=== PATIENT | female | born 1930 | race Caucasian/White ===

== ENCOUNTER 2017-07-14 18:51 | Emergency (ER) | payer MEDICARE, MEDICAID ==
[~2017-07-14] VITALS: Ht 162.6 cm; Wt 68.0 kg
[~2017-07-14 18:51] MED LIST: ATORVASTATIN CA10 MG ORAL; BENTYL10 MG ORAL; CRESTOR40 MG ORAL; DIOVAN80 MG ORAL; NEXIUM40 MG ORAL; NORCO 5-325 TA1 EACH PO; TENORMIN25 MG ORAL; [UNRECOGNIZED DRUG - OTHER] PO
[2017-07-14 19:05] VITALS: BP 150/89
[2017-07-14] MEDS ORDERED: Hydromorphone 0.5mg/0.5ml inj IVP ONE ×2 (19:30→20:15)
[2017-07-14] MEDS ORDERED: HYOSCYAMINE0.125 MG PO (20:08)
[2017-07-14] MEDS ORDERED: DICYCLOMINE HCL20 M1 PO (20:08)
[2017-07-14] MEDS ORDERED: METOPROLOL SUCC25 MG ORAL (20:08)
[2017-07-14] MEDS ORDERED: CRESTOR20 MG ORAL (20:08)
[2017-07-14] MEDS ORDERED: BENICAR40 MG ORAL (20:08)
[2017-07-14] MEDS ORDERED: MULTIVITAMINS1 EA14 PO (20:11)
[2017-07-14] MEDS ORDERED: LYRICA50 MG ORAL (20:11)
[2017-07-14] MEDS ORDERED: TYLENOL EXTRA500 MG ORAL (20:11)
[2017-07-14] MEDS ORDERED: LORazepam Inj 2mg/ml 1ml IV ONE (20:30)
[2017-07-14] MEDS ORDERED: Hyoscyamine 0.125mg tab ORAL ONE (20:30)
[2017-07-14 21:23] VITALS: BP 132/77
[2017-07-14] MEDS ORDERED: ACETAMINOPHEN-1 EAC1 ORAL (21:34)
[2017-07-14] MEDS ORDERED: ATIVAN1 MG ORAL (21:34)
[2017-07-14 21:48] VITALS: BP 132/77
--- NOTE | 2017-07-15 15:37 | Emergency Room Report ---
History of Present Illness General Chief Complaint: Abdominal Pain Source: Patient Present Illness HPI 87-year-old female presents to ED for evaluation. Presents by EMS for abdominal pain which started around 5 PM today. Started at home. Sudden onset. Right lower quadrant, 10 out of 10, nonradiating. Notes nausea. Daughter at bedside states that patient has had this presentation for many years. States it is a spasm. Is currently on antispasmodic medications hycosamine. However it is not helping at this time. Was at [facility] last week and symptoms resolved with Bentyl. Patient states she has had multiple CT scans in the past which were unremarkable. No other aggravating or relieving factors. Denies any other associated symptoms Allergies: Coded Allergies: No Known Allergies (Unverified , 08/18/12) Patient History Past Medical History: HTN, other - hernia Past Surgical History: none Pertinent Family History: none Social History: Denies: smoking, alcohol use, drug use Now: No Immunizations: UTD Reviewed Nursing Documentation: PMH: Agreed, PSxH: Agreed Nursing Documentation-PMH Past Medical History: No History, Except For Hx Hypertension: Yes Hx Cancer: No Hx Gastrointestinal Problems: Yes - HERNIA Hx Neurological Problems: No Review of Systems All Other Systems: negative except mentioned in HPI Physical Exam Vital Signs Date Time Temp Pulse Resp B/P (MAP) Pulse Ox O2 Delivery O2 Flow Rate FiO2 07/14/17 18:51 97.8 74 18 162/60 98 Room Air 97.9 Sp02 EP Interpretation: reviewed, normal General Appearance: alert, GCS 15, non-toxic, mild distress Head: normocephalic, atraumatic Eyes: bilateral eye normal inspection, bilateral eye PERRL ENT: hearing grossly normal, normal pharynx, no angioedema, normal voice Neck: full range of motion, supple/symm/no masses Respiratory: chest non-tender, lungs clear, normal breath sounds, speaking full sentences Cardiovascular #1: regular rate, rhythm, no edema Cardiovascular #2: 2+ carotid (R), 2+ carotid (L), 2+ radial (R), 2+ radial (L) , 2+ dorsalis pedis (R), 2+ dorsalis pedis (L) Gastrointestinal: normal bowel sounds, soft, non-distended, no guarding, no rebound, tenderness Rectal: deferred Genitourinary: normal inspection, no CVA tenderness Musculoskeletal: back normal, gait/station normal, normal range of motion, non- tender Neurologic: alert, oriented x3, responsive, motor strength/tone normal, sensory intact, speech normal Psychiatric: judgement/insight normal, memory normal, mood/affect normal, no suicidal/homicidal ideation Reflexes: 3+ bicep (R), 3+ bicep (L), 3+ tricep (R), 3+ tricep (L), 3+ knee (R) , 3+ knee (L) Skin: normal color, no rash, warm/dry, well hydrated Lymphatic: no adenopathy Medical Decision Making Diagnostic Impression: Primary Impression: Abdominal wall pain ER Course Hospital Course 87-year-old F presents to ED with abdominal pain Differential diagnosis includes-appendicitis, cholecystitis, small bowel obstruction, gastritis, Clinical course Patient placed on stretcher. After initial history, physical exam reveals an elderly female in mild distress. On exam there is some focal tenderness to the right lower quadrant, with some guarding. No rebound. Abdomen otherwise soft. Daughter at bedside states that patient's presentation is always the same and this is no different. Has had multiple CTs in the past which were negative I see no reason repeat imaging at this time Discussed case with GI Dr Can. says only antispasmodic agents are oral. however recommends IV anticholinergic such as compazine Patient given IV fluids, pain medication and Compazine. Symptoms persist. Was given Ativan and Hycosamine here Upon reassessment, patient states pain has improved. Agreed that patient can be safely discharged to home I feel this is a highly complex case requiring extensive working including EKG/ Rhythm strip, Xray/CT/US, Blood/urine lab work, repeat exams while in ED, and administration of strong opiates/narcotics for pain control, admission to hospital or close patient follow up. Diagnosis - abdominal pain Stable and discharged to home with Rx Ativan, Tylenol #3. Followup with PMD. Return to ED if symptoms recur or worsen Last Vital Signs Date Time Temp Pulse Resp B/P (MAP) Pulse Ox O2 Delivery O2 Flow Rate FiO2 07/14/17 21:48 97.5 91 17 132/77 95 Room Air 97.5 Status: improved Disposition: HOME, SELF-CARE Condition: Stable Scripts Acetaminophen With Codeine (T#3) (TYLENOL #3 TAB*) Y Tab 1 TAB ORAL Q8H Y for For Pain, #20 TAB Prov: JEFF OLIVARES M.D. 07/14/17 Lorazepam* (ATIVAN*) 1 Mg Tablet 1 MG ORAL THREE TIMES A DAY, #20 TAB Prov: JEFF OLIVARES M.D. 07/14/17 Patient Instructions: Abdominal Pain, Adult JEFF OLIVARES M.D. Jul 15, 2017 15:37
== END 2017-07-14 21:48 | disposition home or self-care (01) ==
LOC: EDBD 18:51 → EMR 19:25
DX: R10.31 Right lower quadrant pain (principal); I10 Essential (primary) hypertension
CPT/HCPCS: 96374; 96375; 99284; J0780; J1170

== ENCOUNTER 2019-04-04 17:18 | Emergency (ER) | payer MEDICARE, MEDICAID ==
[~2019-04-04] VITALS: Ht 160 cm; Wt 79.4 kg
[~2019-04-04 17:18] MED LIST changes: +ACETAMINOPHEN-1 EAC1 ORAL; +ATIVAN1 MG ORAL; +BENICAR40 MG ORAL; +CRESTOR20 MG ORAL; +DICYCLOMINE HCL20 M1 PO; +HYOSCYAMINE0.125 MG PO; +LYRICA50 MG ORAL; +METOPROLOL SUCC25 MG ORAL; +MULTIVITAMINS1 EA14 PO; +TYLENOL EXTRA500 MG ORAL
[2019-04-04 17:50] VITALS: BP 139/78
[2019-04-04] MEDS ORDERED: Methocarbamol 750mg tab ORAL ONE (18:00)
[2019-04-04 18:37] LABS: BASOPHILS % (AUTO) 0.7 % (0.0-2.0); EOSINOPHILS % (AUTO) 1.4 % (0.0-3.0); HEMATOCRIT 35.9 % (37.0-47.0); HEMOGLOBIN 12.1 G/DL (12.0-16.0); LYMPHOCYTES % (AUTO) 20.5 % (20.0-45.0); MEAN CORPUSCULAR VOLUME 90 FL (80-99); MONOCYTES % (AUTO) 10.8 % (1.0-10.0); NEUTROPHILS % (AUTO) 66.5 % (45.0-75.0); PLATELET COUNT 194 K/UL (150-450); RED CELL DISTRIBUTION WIDTH 11.6 % (11.6-14.8); WHITE BLOOD COUNT 6.1 K/UL (4.8-10.8)
[2019-04-04 18:41] LABS: APPEARANCE,URINE CLEAR; BILIRUBIN, URINE NEGATIVE (NEGATIVE); COLOR,URINE PALE YELLOW; GLUCOSE, URINE (UA) NEGATIVE (NEGATIVE); KETONES,URINE 2+ (NEGATIVE); LEUKOCYTE ESTERASE ,URINE NEGATIVE (NEGATIVE); NITRITE,URINE NEGATIVE (NEGATIVE); PH,URINE 7 (4.5-8.0); PROTEIN,URINE NEGATIVE (NEGATIVE); UROBILINOGEN,URINE NORMAL MG/DL (0.0-1.0)
[2019-04-04 18:41] LABS: ANION GAP 10 mmol/L (5-15); BLOOD UREA NITROGEN 13 mg/dL (7-18); CALCIUM 9.4 MG/DL (8.5-10.1); CARBON DIOXIDE 26 MMOL/L (21-32); CHLORIDE 104 MMOL/L (98-107); CREATININE 0.9 MG/DL (0.55-1.30); POTASSIUM 4.2 MMOL/L (3.5-5.1); SODIUM 140 MMOL/L (136-145)
[2019-04-04 18:45] LABS: ALANINE AMINOTRANSFERASE 19 U/L (12-78); ALBUMIN 3.2 G/DL (3.4-5.0); ALBUMIN/GLOBULIN RATIO 0.9 (1.0-2.7); ALKALINE PHOSPHATASE 65 U/L (46-116); ASPARTATE AMINO TRANSFERASE 22 U/L (15-37); BILIRUBIN,TOTAL 0.6 MG/DL (0.2-1.0)
[2019-04-04] MEDS ORDERED: ROBAXIN-750750 MG PO (19:10)
[2019-04-04 19:24] VITALS: BP 135/78
--- NOTE | 2019-04-04 19:24 | NUR ---
ER DISCHARGE NOTE: Patient is cleared to be discharged per ERMD, pt is aox4, on room air, with stable vital signs. accompanied by family member. pt was given dc and prescription instructions, pt was able to verbalize understanding, pt id band and iv site removed without complications. pt is able to ambulate with steady gait. pt took all belongings.
--- NOTE | 2019-04-04 19:47 | Emergency Room Report ---
History of Present Illness General Chief Complaint: Pain Source: Patient, Family Member Present Illness HPI 89-year-old female presents ED for evaluation. Family at bedside. Patient states that she is having right-sided abdominal pain. States she has had this pain on and off for years. Has had multiple work-ups including CTs which have been unremarkable. She has been told that this likely muscular pain. Patient took a [place] earlier today and states the pain did not resolve. Pain is dull, 7 out of 10, nonradiating. Denies fevers or chills. Denies chest pain or shortness of breath. Denies nausea or vomiting. No other aggravating relieving factors. Denies any other associated symptoms Allergies: Coded Allergies: No Known Allergies (Unverified , 08/18/12) Patient History Past Medical History: GERD Past Surgical History: none Pertinent Family History: none Social History: Denies: smoking, alcohol use, drug use Now: No Immunizations: UTD Reviewed Nursing Documentation: PMH: Agreed; PSxH: Agreed Nursing Documentation-PMH Past Medical History: No History, Except For Hx Hypertension: Yes Hx Cancer: No Hx Gastrointestinal Problems: Yes - HERNIA Hx Neurological Problems: No Review of Systems All Other Systems: negative except mentioned in HPI Physical Exam Vital Signs Date Time Temp Pulse Resp B/P (MAP) Pulse Ox O2 Delivery O2 Flow Rate FiO2 04/04/19 17:32 97.3 77 15 139/78 (98) 100 Room Air Sp02 EP Interpretation: reviewed, normal General Appearance: no apparent distress, alert, GCS 15, non-toxic Head: normocephalic, atraumatic Eyes: bilateral eye normal inspection, bilateral eye PERRL ENT: hearing grossly normal, normal pharynx, no angioedema, normal voice Neck: full range of motion, supple/symm/no masses Respiratory: chest non-tender, lungs clear, normal breath sounds, speaking full sentences Cardiovascular #1: regular rate, rhythm, no edema Cardiovascular #2: 2+ carotid (R), 2+ carotid (L), 2+ radial (R), 2+ radial (L) , 2+ dorsalis pedis (R), 2+ dorsalis pedis (L) Gastrointestinal: normal bowel sounds, soft, non-distended, no guarding, no rebound, tenderness - R sided abd pain Rectal: deferred Genitourinary: normal inspection, no CVA tenderness Musculoskeletal: back normal, normal range of motion, gait/station normal, non- tender Neurologic: alert, motor strength/tone normal, oriented x3, sensory intact, responsive, speech normal Psychiatric: judgement/insight normal, memory normal, mood/affect normal, no suicidal/homicidal ideation Reflexes: 3+ bicep (R), 3+ bicep (L), 3+ tricep (R), 3+ tricep (L), 3+ knee (R) , 3+ knee (L) Lymphatic: no adenopathy Medical Decision Making Diagnostic Impression: Primary Impression: Abdominal wall pain ER Course Hospital Course 89-year-old F presents to ED with R sided abd pain differential diagnosis: gastritis, SBO, cholecystits Clinical course Patient placed on stretcher. On monitor tech. After initial history, physical exam reveals elderly female in no acute distress. Abdomen is soft. Patient describes some pain to the right mid abdomen. No guarding or rebound. bowel sounds present. Labs - no leukocytosis, no electrolyte abnormalities, LFTs normal, UA unremarkable Patient has had prior imaging studies which have been unremarkable. Has been told by her PMD that her pain is likely muscular. Last CT was in January. The Robaxin and Lidoderm with improvement in pain noted. I discussed these findings with patient. I offered option for CT but patient declined. We will discharge to home. States she will follow-up with her PMD I feel this is a highly complex case requiring extensive working including EKG/ Rhythm strip, Xray/CT/US, Blood/urine lab work, repeat exams while in ED, and administration of strong opiates/narcotics for pain control, admission to hospital or close patient follow up. Diagnosis - abdominal wall pain Stable and discharged to home with prescriptions for Robaxin, lidoderm. Followup with PMD. Return to ED if symptoms recur or worsen Labs Test 04/04/19 18:00 04/04/19 18:08 Urine Color Pale yellow Urine Appearance Clear Urine pH 7 (4.5-8.0) Urine Specific [place] 1.010 (1.005-1.035) Urine Protein Negative (NEGATIVE) Urine Glucose (UA) Negative (NEGATIVE) Urine Ketones 2+ (NEGATIVE) Urine Blood Negative (NEGATIVE) Urine Nitrite Negative (NEGATIVE) Urine Bilirubin Negative (NEGATIVE) Urine Urobilinogen Normal MG/DL (0.0-1.0) Urine Leukocyte Esterase Negative (NEGATIVE) White Blood Count 6.1 K/UL (4.8-10.8) Red Blood Count 4.00 M/UL (4.20-5.40) Hemoglobin 12.1 G/DL (12.0-16.0) Hematocrit 35.9 % (37.0-47.0) Mean Corpuscular Volume 90 FL (80-99) Mean Corpuscular Hemoglobin 30.2 PG (27.0-31.0) Mean Corpuscular Hemoglobin Concent 33.6 G/DL (32.0-36.0) Red Cell Distribution Width 11.6 % (11.6-14.8) Platelet Count 194 K/UL (150-450) Mean Platelet Volume 6.2 FL (6.5-10.1) Neutrophils (%) (Auto) 66.5 % (45.0-75.0) Lymphocytes (%) (Auto) 20.5 % (20.0-45.0) Monocytes (%) (Auto) 10.8 % (1.0-10.0) Eosinophils (%) (Auto) 1.4 % (0.0-3.0) Basophils (%) (Auto) 0.7 % (0.0-2.0) Sodium Level 140 MMOL/L (136-145) Potassium Level 4.2 MMOL/L (3.5-5.1) Chloride Level 104 MMOL/L (98-107) Carbon Dioxide Level 26 MMOL/L (21-32) Anion Gap 10 mmol/L (5-15) Blood Urea Nitrogen 13 mg/dL (7-18) Creatinine 0.9 MG/DL (0.55-1.30) Estimat Glomerular Filtration Rate mL/min (>60) Glucose Level 108 MG/DL (74-106) Calcium Level 9.4 MG/DL (8.5-10.1) Total Bilirubin 0.6 MG/DL (0.2-1.0) Aspartate Amino Transf (AST/SGOT) 22 U/L (15-37) Alanine Aminotransferase (ALT/SGPT) 19 U/L (12-78) Alkaline Phosphatase 65 U/L (46-116) Total Protein 6.6 G/DL (6.4-8.2) Albumin 3.2 G/DL (3.4-5.0) Globulin 3.4 g/dL Albumin/Globulin Ratio 0.9 (1.0-2.7) Lipase 131 U/L (73-393) Last Vital Signs Date Time Temp Pulse Resp B/P (MAP) Pulse Ox O2 Delivery O2 Flow Rate FiO2 04/04/19 19:24 97.3 77 15 135/78 100 Room Air Status: improved Disposition: HOME, SELF-CARE Condition: Stable Scripts Methocarbamol* (ROBAXIN-750*) 750 Mg Tablet 750 MG PO TID, #21 TAB 0 Refills Prov: Shyam Garland MD 04/04/19 Patient Instructions: Abdominal Pain, Adult, [id number] Shyam Garland MD Apr 04, 2019 19:47
== END 2019-04-04 19:25 | disposition home or self-care (01) ==
LOC: EMR 17:45
DX: R10.9 Unspecified abdominal pain (principal); K21.9 Gastro-esophageal reflux disease without esophagitis; I10 Essential (primary) hypertension
CPT/HCPCS: 36415; 80053; 81003; 83690; 85025; 99284; J7040

== ENCOUNTER 2019-07-01 15:52 | Emergency (ER) | payer MEDICARE, MEDICAID ==
[~2019-07-01] VITALS: Ht 157.5 cm; Wt 78.5 kg
[~2019-07-01 15:52] MED LIST changes: +ROBAXIN-750750 MG PO
[2019-07-01 16:15] VITALS: BP 135/75
--- NOTE | 2019-07-01 16:15 | NUR ---
ED Nurse Note: Pt walked in from home c/o RLQ pain 10/10 x 4 hours. Pt denies n/v/diarrhea. Pt says she was in this ED recently for the same symptoms. Respirations even and unlabored on room air. Vitals stable as documented.
--- NOTE | 2019-07-01 16:27 | NUR ---
ED Nurse Note: IV LINE ESTABLISHED, PATENT AND INTACT. BLOOD SENT TO LAB.
[2019-07-01] MEDS ORDERED: Methocarbamol 750mg tab ORAL ONE (16:45)
[2019-07-01] MEDS ORDERED: Morphine Sulfate 2mg/ml Inj(IV/IM USE ONLY) IVP ONE (16:45)
[2019-07-01 17:02] LABS: BASOPHILS % (AUTO) 1.6 % (0.0-2.0); EOSINOPHILS % (AUTO) 2.7 % (0.0-3.0); HEMATOCRIT 40.3 % (37.0-47.0); HEMOGLOBIN 13.2 G/DL (12.0-16.0); LYMPHOCYTES % (AUTO) 29.5 % (20.0-45.0); MEAN CORPUSCULAR VOLUME 91 FL (80-99); MONOCYTES % (AUTO) 11.1 % (1.0-10.0); NEUTROPHILS % (AUTO) 55.1 % (45.0-75.0); PLATELET COUNT 207 K/UL (150-450); RED BLOOD COUNT 4.42 M/UL (4.20-5.40); RED CELL DISTRIBUTION WIDTH 13.1 % (11.6-14.8); WHITE BLOOD COUNT 6.6 K/UL (4.8-10.8)
[2019-07-01 17:12] LABS: ANION GAP 15 mmol/L (5-15); BLOOD UREA NITROGEN 11 mg/dL (7-18); CARBON DIOXIDE 23 MMOL/L (21-32); CHLORIDE 103 MMOL/L (98-107); CREATININE 0.9 MG/DL (0.55-1.30); POTASSIUM 3.8 MMOL/L (3.5-5.1); SODIUM 141 MMOL/L (136-145)
[2019-07-01 17:19] LABS: ALANINE AMINOTRANSFERASE 19 U/L (12-78); ALBUMIN 3.5 G/DL (3.4-5.0); ALBUMIN/GLOBULIN RATIO 0.9 (1.0-2.7); ALKALINE PHOSPHATASE 65 U/L (46-116); ASPARTATE AMINO TRANSFERASE 22 U/L (15-37); BILIRUBIN,TOTAL 0.6 MG/DL (0.2-1.0)
[2019-07-01] MEDS ORDERED: LIDODERM700 M1 TOPIC (17:55)
[2019-07-01] MEDS ORDERED: ROBAXIN-750750 MG PO (17:55)
[2019-07-01 18:15] VITALS: BP 138/71
--- NOTE | 2019-07-01 18:15 | NUR ---
ER DISCHARGE NOTE: Patient is cleared to be discharged per ERMD, pt is aox4, on room air, with stable vital signs as documented. pt was given dc and prescription instructions, pt was able to verbalize understanding, pt id band and iv site removed without complications. pt is able to ambulate with steady gait. pt took all belongings.
--- NOTE | 2019-07-01 21:40 | Emergency Room Report ---
History of Present Illness General Chief Complaint: Abdominal Pain Source: Patient, Family Member Present Illness HPI 89-year-old female presents ED for evaluation of abdominal wall pain. Son at bedside states that patient has had this pain for many years. Is a muscle spasm. Has been evaluated by multiple specialist for this. Is had multiple CTs which have been negative. Pain got exacerbated 4 days ago. States her normal antispasmodic agents are not helping for the pain. 8 out of 10, throbbing, nonradiating. Denies nausea or vomiting. Denies fevers or chills. No other aggravating relieving factors. Denies any other associated symptoms Allergies: Coded Allergies: No Known Allergies (Unverified , 08/18/12) Patient History Past Medical History: HTN Past Surgical History: none Pertinent Family History: none Social History: Denies: smoking, alcohol use, drug use Now: No Immunizations: UTD Reviewed Nursing Documentation: PMH: Agreed; PSxH: Agreed Nursing Documentation-PMH Past Medical History: No History, Except For Hx Hypertension: Yes Hx Cancer: No Hx Gastrointestinal Problems: Yes - HERNIA Hx Neurological Problems: No Review of Systems All Other Systems: negative except mentioned in HPI Physical Exam Vital Signs Date Time Temp Pulse Resp B/P (MAP) Pulse Ox O2 Delivery O2 Flow Rate FiO2 07/01/19 16:13 98.2 77 18 132/72 (92) 99 Room Air Sp02 EP Interpretation: reviewed, normal General Appearance: no apparent distress, alert, GCS 15, non-toxic Head: normocephalic, atraumatic Eyes: bilateral eye normal inspection, bilateral eye PERRL ENT: hearing grossly normal, normal pharynx, no angioedema, normal voice Neck: full range of motion, supple/symm/no masses Respiratory: chest non-tender, lungs clear, normal breath sounds, speaking full sentences Cardiovascular #1: regular rate, rhythm, no edema Cardiovascular #2: 2+ carotid (R), 2+ carotid (L), 2+ radial (R), 2+ radial (L) , 2+ dorsalis pedis (R), 2+ dorsalis pedis (L) Gastrointestinal: normal bowel sounds, soft, non-distended, no rebound, tenderness Rectal: deferred Genitourinary: normal inspection, no CVA tenderness Musculoskeletal: back normal, normal range of motion, gait/station normal, non- tender Neurologic: alert, motor strength/tone normal, oriented x3, sensory intact, responsive, speech normal Psychiatric: judgement/insight normal, memory normal, mood/affect normal, no suicidal/homicidal ideation Reflexes: 3+ bicep (R), 3+ bicep (L), 3+ tricep (R), 3+ tricep (L), 3+ knee (R) , 3+ knee (L) Skin: no rash Lymphatic: no adenopathy Medical Decision Making Diagnostic Impression: Primary Impression: Abdominal wall pain ER Course Hospital Course 89-year-old F presents to ED with abdominal wall pain Differential diagnosis includes-appendicitis, cholecystitis, small bowel obstruction, gastritis, Clinical course Patient placed on stretcher. After initial history and physical I ordered labs , pain meds Labs - no leukocytosis, electrolytes ok, LFTs ok She has been here several times for similar presentation. I saw patient last. Pain is very similar in nature. Patient normally takes hycosamine Patient given morphine, Robaxin, Lidoderm here. Pain is improved. Do not believe CT is indicated as she has had multiple scans and is currently being evaluated in outpatient setting for this. Patient and family agree. Safe for discharge for close outpatient follow-up I feel this is a highly complex case requiring extensive working including EKG/ Rhythm strip, Xray/CT/US, Blood/urine lab work, repeat exams while in ED, and administration of strong opiates/narcotics for pain control, admission to hospital or close patient follow up. Diagnosis - abdominal wall pain Stable and discharged to home with Rx Robaxin, LIdoderm. Followup with PMD. Return to ED if symptoms recur or worsen Labs Test 07/01/19 16:20 White Blood Count 6.6 K/UL (4.8-10.8) Red Blood Count 4.42 M/UL (4.20-5.40) Hemoglobin 13.2 G/DL (12.0-16.0) Hematocrit 40.3 % (37.0-47.0) Mean Corpuscular Volume 91 FL (80-99) Mean Corpuscular Hemoglobin 29.9 PG (27.0-31.0) Mean Corpuscular Hemoglobin Concent 32.9 G/DL (32.0-36.0) Red Cell Distribution Width 13.1 % (11.6-14.8) Platelet Count 207 K/UL (150-450) Mean Platelet Volume 7.3 FL (6.5-10.1) Neutrophils (%) (Auto) 55.1 % (45.0-75.0) Lymphocytes (%) (Auto) 29.5 % (20.0-45.0) Monocytes (%) (Auto) 11.1 % (1.0-10.0) Eosinophils (%) (Auto) 2.7 % (0.0-3.0) Basophils (%) (Auto) 1.6 % (0.0-2.0) Sodium Level 141 MMOL/L (136-145) Potassium Level 3.8 MMOL/L (3.5-5.1) Chloride Level 103 MMOL/L (98-107) Carbon Dioxide Level 23 MMOL/L (21-32) Anion Gap 15 mmol/L (5-15) Blood Urea Nitrogen 11 mg/dL (7-18) Creatinine 0.9 MG/DL (0.55-1.30) Estimat Glomerular Filtration Rate 59.2 mL/min (>60) Glucose Level 112 MG/DL (74-106) Calcium Level 10.0 MG/DL (8.5-10.1) Total Bilirubin 0.6 MG/DL (0.2-1.0) Aspartate Amino Transf (AST/SGOT) 22 U/L (15-37) Alanine Aminotransferase (ALT/SGPT) 19 U/L (12-78) Alkaline Phosphatase 65 U/L (46-116) Total Protein 7.3 G/DL (6.4-8.2) Albumin 3.5 G/DL (3.4-5.0) Globulin 3.8 g/dL Albumin/Globulin Ratio 0.9 (1.0-2.7) Last Vital Signs Date Time Temp Pulse Resp B/P (MAP) Pulse Ox O2 Delivery O2 Flow Rate FiO2 07/01/19 18:15 98.0 74 18 138/71 99 Room Air Status: improved Disposition: HOME, SELF-CARE Condition: Stable Scripts Lidocaine Patch* (Lidoderm Patch*) 1 Each Adh..patch 1 PATCH TOPIC DAILY, #7 PATCH 0 Refills Patch(es) may remain in place for up to 12 hours in any 24-hour period. Prov: Shyam Garland MD 07/01/19 Methocarbamol* (ROBAXIN-750*) 750 Mg Tablet 750 MG PO TID, #21 TAB 0 Refills Prov: Shyam Garland MD 07/01/19 Patient Instructions: Abdominal Pain, Adult, [id number] hSyam Garland MD Jul 01, 2019 21:40
== END 2019-07-01 18:15 | disposition home or self-care (01) ==
LOC: EMR 16:30
DX: R10.9 Unspecified abdominal pain (principal); I10 Essential (primary) hypertension
CPT/HCPCS: 36415; 80053; 85025; 96374; 99284; J2270

== ENCOUNTER → 2020-03-04 | Emergency (ER) | payer MEDICARE, MEDICAID ==
[~2020-03-04] VITALS: Ht 154.9 cm; Wt 76.2 kg
[~2020-03-04] MED LIST changes: +EASY-LAX100 MG PO; +LIDODERM700 M1 TOPIC; +LORazepam 0.5mg tab ORAL ONE; +MIRALAX17 G2 ORAL; +Morphine Sulfate 4mg/ml Inj (IV USE ONLY) IVP ONE; +Morphine Sulfate 4mg/ml Inj (IV USE ONLY) ONE; +Omnipaque-300 100ml vial INJ PRN; +SIMETHICONE125 M1 PO; +TRAMADOL HCL50 MG ORAL
[2020-03-04 15:34] VITALS: BP 136/88
[2020-03-04 16:18] LABS: BASOPHILS % (AUTO) 1.9 % (0.0-2.0); EOSINOPHILS % (AUTO) 1.1 % (0.0-3.0); HEMATOCRIT 40.7 % (37.0-47.0); HEMOGLOBIN 13.3 G/DL (12.0-16.0); LYMPHOCYTES % (AUTO) 24.4 % (20.0-45.0); MEAN CORPUSCULAR VOLUME 92 FL (80-99); NEUTROPHILS % (AUTO) 62.6 % (45.0-75.0); PLATELET COUNT 224 K/UL (150-450); RED BLOOD COUNT 4.43 M/UL (4.20-5.40); RED CELL DISTRIBUTION WIDTH 12.4 % (11.6-14.8); WHITE BLOOD COUNT 5.9 K/UL (4.8-10.8)
[2020-03-04 16:22] LABS: CALCIUM 9.6 MG/DL (8.5-10.1); CREATININE 1.1 MG/DL (0.55-1.30); POTASSIUM 3.6 MMOL/L (3.5-5.1)
[2020-03-04 16:26] VITALS: BP 136/88
[2020-03-04 16:27] LABS: ALBUMIN 3.6 G/DL (3.4-5.0); ALBUMIN/GLOBULIN RATIO 0.9 (1.0-2.7); BILIRUBIN,TOTAL 0.5 MG/DL (0.2-1.0)
--- NOTE | 2020-03-04 16:35 | Emergency Room Report ---
History of Present Illness General Chief Complaint: Abdominal Pain Source: Patient Present Illness HPI This patient states that she has a history of recurrent abdominal pain. She has been given Bentyl and pain medications. She has been seen by multiple physicians and specialists. Patient also has a history of ongoing constipation. She does take medication for this but states it does not really work. She last had a severe episode in June of this year. She states that about 3 hours prior to arrival today she developed sudden onset of the severe cramping pain in her right lower and right middle abdomen. She states that the symptoms are similar to her previous episodes but that this is in a large area covering both her right lower abdomen and lower middle abdomen. She did try to have a bowel movement but was unsuccessful today. She denies recent illness. She denies fever or chills. She denies nausea or vomiting. She denies dysuria or hematuria. She has no other complaints. Allergies: Coded Allergies: No Known Allergies (Unverified , 08/18/12) COVID-19 Screening Contact w/high risk pt: No Experienced COVID-19 symptoms?: No COVID-19 Testing performed PLATE CONDITIONER: No Patient History Past Medical History: see triage record, HTN, other - HLP Social History: Denies: smoking, alcohol use, drug use Last Menstrual Period: na Reviewed Nursing Documentation: PMH: Agreed; PSxH: Agreed Nursing Documentation-PMH Past Medical History: No History, Except For Hx Hypertension: Yes Hx Cancer: No Hx Gastrointestinal Problems: Yes - HERNIA Hx Neurological Problems: No Review of Systems All Other Systems: negative except mentioned in HPI Physical Exam Vital Signs Date Time Temp Pulse Resp B/P (MAP) Pulse Ox O2 Delivery O2 Flow Rate FiO2 03/04/20 15:15 98.1 77 16 136/88 (104) 98 Room Air Sp02 EP Interpretation: reviewed, normal General Appearance: no apparent distress, alert, GCS 15, non-toxic Head: normocephalic, atraumatic Eyes: bilateral eye normal inspection ENT: hearing grossly normal, normal pharynx, no angioedema, normal voice Neck: normal inspection, full range of motion Respiratory: no respiratory distress, no retraction, no accessory muscle use, speaking full sentences Cardiovascular #1: regular rate, rhythm, no edema Gastrointestinal: soft, non-distended, no guarding, no rebound, tenderness - +exquisitely TTP over the RLQ and supra-pubic/lower middle abdomen. Rectal: deferred Musculoskeletal: back normal, normal range of motion, gait/station normal, non- tender Neurologic: alert, motor strength/tone normal, oriented x3, sensory intact, responsive, speech normal Psychiatric: judgement/insight normal, memory normal, mood/affect normal, no suicidal/homicidal ideation Skin: no rash, normal color Medical Decision Making Diagnostic Impression: Primary Impression: Abdominal pain of unknown etiology Additional Impressions: Constipation Spasm of bowel ER Course This patient came in with severe abdominal pain. The patient was crying and yelling repeatedly. She was very uncomfortable. Patient's abdominal exam was also exquisitely tender. I did review the patient's previous chart and she had been worked up for this previously. However, the patient was adamant that the pain was worse and involve the larger area of her abdomen. Therefore, I felt I should image the patient's abdomen. She declined IV and oral contrast stating she was unwilling to wait for the oral contrast and was to afraid of the renal implications of the IV contrast. Therefore, a CT noncontrast of her abdomen and pelvis was obtained. This did not show any acute findings. Patient has a planned MRI of her abdomen from her primary care physician. She also has been seen by clerk of works. Laboratory work-up in the emergency department was unremarkable. I suspect the patient may be having intestinal spasms related to constipation and gas. She may have an element of irritable bowel syndrome. Regardless, I did educate the patient that opioids would aggravate her symptoms significantly. She is taking [place], Bentyl and stool softeners. I will place the patient on a laxative/bowel regimen also and I instructed her to call her primary care physician and go over all of her medications together and decide which then will work best for her. Likely the patient is taking a [place] and significantly aggravating her constipation. Regardless, no emergency medical condition was identified. The patient is given close return precautions and follow-up instructions. Laboratory Tests Test 03/04/20 15:40 03/04/20 16:45 White Blood Count 5.9 K/UL (4.8-10.8) Red Blood Count 4.43 M/UL (4.20-5.40) Hemoglobin 13.3 G/DL (12.0-16.0) Hematocrit 40.7 % (37.0-47.0) Mean Corpuscular Volume 92 FL (80-99) Mean Corpuscular Hemoglobin 30.0 PG (27.0-31.0) Mean Corpuscular Hemoglobin Concent 32.6 G/DL (32.0-36.0) Red Cell Distribution Width 12.4 % (11.6-14.8) Platelet Count 224 K/UL (150-450) Mean Platelet Volume 6.7 FL (6.5-10.1) Neutrophils (%) (Auto) 62.6 % (45.0-75.0) Lymphocytes (%) (Auto) 24.4 % (20.0-45.0) Monocytes (%) (Auto) 10.0 % (1.0-10.0) Eosinophils (%) (Auto) 1.1 % (0.0-3.0) Basophils (%) (Auto) 1.9 % (0.0-2.0) Sodium Level 138 MMOL/L (136-145) Potassium Level 3.6 MMOL/L (3.5-5.1) Chloride Level 103 MMOL/L (98-107) Carbon Dioxide Level 26 MMOL/L (21-32) Anion Gap 9 mmol/L (5-15) Blood Urea Nitrogen 14 mg/dL (7-18) Creatinine 1.1 MG/DL (0.55-1.30) Estimated Glomerular Filtration Rate 46.9 mL/min (>60) Glucose Level 106 MG/DL (74-106) Calcium Level 9.6 MG/DL (8.5-10.1) Total Bilirubin 0.5 MG/DL (0.2-1.0) Aspartate Amino Transferase (AST) 22 U/L (15-37) Alanine Aminotransferase (ALT) 20 U/L (12-78) Alkaline Phosphatase 86 U/L (46-116) Total Protein 7.4 G/DL (6.4-8.2) Albumin 3.6 G/DL (3.4-5.0) Globulin 3.8 g/dL Albumin/Globulin Ratio 0.9 (1.0-2.7) L Lipase 137 U/L (73-393) Urine Color Pale yellow Urine Appearance Clear Urine pH 8 (4.5-8.0) Urine Specific [place] 1.010 (1.005-1.035) Urine Protein Negative (NEGATIVE) Urine Glucose (UA) Negative (NEGATIVE) Urine Ketones Negative (NEGATIVE) Urine Blood Negative (NEGATIVE) Urine Nitrite Negative (NEGATIVE) Urine Bilirubin Negative (NEGATIVE) Urine Urobilinogen Normal MG/DL (0.0-1.0) Urine Leukocyte Esterase 1+ (NEGATIVE) H Urine RBC 0-2 /HPF (0 - 2) Urine WBC 2-4 /HPF (0 - 2) Urine Squamous Epithelial Cells Few /LPF (NONE/OCC) Urine Bacteria Occasional /HPF (NONE) CT/MRI/US Diagnostic Results CT/MRI/US Diagnostic Results : Imaging Test Ordered: CT abd/pelvis Impression IMPRESSION: Large hiatal hernia. No acute abnormality in the abdomen or pelvis. Last Vital Signs Date Time Temp Pulse Resp B/P (MAP) Pulse Ox O2 Delivery O2 Flow Rate FiO2 03/04/20 15:34 98.1 77 16 136/88 98 Room Air Status: improved Disposition: HOME, SELF-CARE Condition: Improved Referrals: NON PHYSICIAN (PCP) Allie Wooten DO Mar 04, 2020 16:35
[2020-03-04] MEDS: Morphine Sulfate 4mg/ml Inj (IV USE ONLY) IVP ONE ×2 (16:45→18:40)
[2020-03-04 17:03] LABS: APPEARANCE,URINE CLEAR; BILIRUBIN, URINE NEGATIVE (NEGATIVE); COLOR,URINE PALE YELLOW; GLUCOSE, URINE (UA) NEGATIVE (NEGATIVE); KETONES,URINE NEGATIVE (NEGATIVE); LEUKOCYTE ESTERASE ,URINE 1+ (NEGATIVE); NITRITE,URINE NEGATIVE (NEGATIVE); PH,URINE 8 (4.5-8.0); PROTEIN,URINE NEGATIVE (NEGATIVE); UROBILINOGEN,URINE NORMAL MG/DL (0.0-1.0)
--- NOTE | 2020-03-04 17:39 | Diagnostic Imaging Report ---
EXAM: CT Abdomen and Pelvis Without Intravenous Contrast CLINICAL HISTORY: PAIN TECHNIQUE: Axial computed tomography images of the abdomen and pelvis without intravenous contrast. CTDI is 10.80 mGy and DLP is 528.00 mGy-cm. One or more of the following dose reduction techniques were used: automated exposure control, adjustment of the mA and/or kV according to patient size, use of iterative reconstruction technique. COMPARISON: CT abdomen/pelvis on 10/06/2013 FINDINGS: Lung bases: Similar probable scarring in the right lower lobe. Similar likely benign nodules in the right lower lobe, measuring up to 6 mm. Mild bibasilar atelectasis. Mediastinum: Large hiatal hernia. ABDOMEN: Liver: Small hepatic cysts. Gallbladder and bile ducts: Unremarkable. No calcified stones. No ductal dilation. Pancreas: Atrophy of the pancreas. No ductal dilation. Spleen: Unremarkable. No splenomegaly. Adrenals: Unremarkable. No mass. Kidneys and ureters: Mildly prominent extrarenal pelvises. No ureteral or stone. Stomach and bowel: Prominence of the benson of the sigmoid colon, descending colon, and proximal transverse colon is likely secondary to under distention. No bowel obstruction. No mucosal thickening. PELVIS: Appendix: Normal appendix. Bladder: Unremarkable. No stones. Reproductive: Unremarkable as visualized. ABDOMEN and PELVIS: Intraperitoneal space: Unremarkable. No free air. No significant fluid collection. Bones/joints: Lumbosacral transitional anatomy. Degenerative changes of the spine. Degenerative grade 1 anterolisthesis of L4 on L5. Probable hemangioma in the L2 vertebral body. No acute fracture. No dislocation. Soft tissues: Injection granulomas in the gluteal soft tissues. Moderate fat-containing umbilical hernia. Vasculature: Phleboliths in pelvis. Atherosclerotic changes of the vasculature. No aortic aneurysm. Lymph nodes: Unremarkable. No enlarged lymph nodes. IMPRESSION: Large hiatal hernia. No acute abnormality in the abdomen or pelvis.
== END | disposition home or self-care (01) ==
LOC: EMR 15:25
DX: R10.31 Right lower quadrant pain (principal); K59.00 Constipation, unspecified; K59.89 Other specified functional intestinal disorders; I10 Essential (primary) hypertension; Z79.899 Other long term (current) drug therapy
CPT/HCPCS: 36415; 74176; 80053; 81003; 83690; 85025; 96361; 96374; 96376; 99284; J2270; J7030